=== PATIENT | male | born 1990 | race Caucasian/White ===

== ENCOUNTER 2021-01-01 20:42 | Observation (INO) ==
[2021-01-01] MEDS ORDERED: Isovue-370 500 ML BOTTLE IVP ONE (22:11)
[2021-01-01] MEDS ORDERED: Ondansetron 4 MG/2 ML VIAL IVP ONE (22:15)
[2021-01-01] MEDS ORDERED: Morphine Sulfate 2 MG/ML SYRINGE IVP STA (22:15)
[2021-01-01] MEDS ORDERED: 0.9 % Sodium Chloride 500 ML IVC STA (22:15)
[2021-01-02] MEDS ORDERED: Piperacillin/Tazobactam 3.375 GM in 0.9 % Sodium Chloride Mini Bag 100 ML IVPB ONE (00:08)
[2021-01-02] MEDS ORDERED: 0.9 % Sodium Chloride 1,000 ML IVC ONE ×2 (00:08→04:25)
[2021-01-02] MEDS ORDERED: 0.9 % Sodium Chloride 1,000 ML IVC SCH (02:15)
[2021-01-02] MEDS ORDERED: Ondansetron 4 MG/2 ML VIAL IVP PRN ×3 (02:25→16:49)
[2021-01-02] MEDS: Acetaminophen IV 1,000 MG/100 ML BAG IVPB SCH ×2 (05:06→11:55)
[2021-01-02] MEDS ORDERED: Piperacillin/Tazobactam 3.375 GM in 0.9 % Sodium Chloride Mini Bag 100 ML IVPB SCH (08:00)
[2021-01-02] MEDS ORDERED: *HR* HYDROmorphone PF 0.5 MG/0.5 ML SYRINGE IVP PRN (12:12)
[2021-01-02] MEDS ORDERED: *HR* Propofol 200 MG/20 ML VIAL IVP ONE (12:56)
[2021-01-02] MEDS ORDERED: *HR* Rocuronium Bromide 50 MG/5 ML VIAL ONE (12:56)
[2021-01-02] MEDS ORDERED: Lidocaine -MPF 2% 2 ML VIAL ONE (12:56)
[2021-01-02] MEDS ORDERED: Ondansetron 4 MG/2 ML VIAL ONE (12:56)
[2021-01-02] MEDS ORDERED: *HR* Midazolam HCl 2 MG/2 ML VIAL ONE (12:56)
[2021-01-02] MEDS ORDERED: Lidocaine HCL 4 ML Topical Solution (Laryng-O-Jet Kit Sterile Pak) TP ONE (12:56)
[2021-01-02] MEDS ORDERED: Ketorolac 30 MG/ML VIAL ONE (12:56)
[2021-01-02] MEDS ORDERED: *HR* FentaNYL (PF) 100 MCG/2 ML VIAL ONE ×2 (12:56→14:51)
[2021-01-02] MEDS ORDERED: *HR* Succinylcholine 200 MG/10 ML VIAL IVP ONE (12:56)
[2021-01-02] MEDS ORDERED: EPHEDrine 50 MG/ML VIAL ONE (14:45)
[2021-01-02] MEDS ORDERED: Sugammadex Sodium 200 MG/2 ML VIAL IV ONE (15:15)
[2021-01-02] MEDS: Ketorolac 15 MG/ML VIAL IVP SCH ×2 (17:46→23:47)
[2021-01-02] MEDS: *HR* OxyCODONE/APAP 5/325 TABLET PO PRN (19:58)
[2021-01-02] MEDS: Piperacillin/Tazobactam 3.375 GM in 0.9 % Sodium Chloride Mini Bag 100 ML IVPB SCH (23:52)
[2021-01-03] MEDS: *HR* OxyCODONE/APAP 5/325 TABLET PO PRN (03:36)
[2021-01-03 05:37] LABS: Basophils % 0.1 %; Monocytes % 3.6 %; Red Cell Distribution Width 13.2 % (11.5-14.5)
[2021-01-03 05:39] LABS: Hematocrit 41.5 % (37.5-50.1); Hemoglobin 13.6 g/dL (12.9-16.9); Immature Granulocytes % 5.4 % (0-4); Immature Platelets 37.1 % (1.1-6.1); Lymphocytes # 0.6 K/mcL (0.6-4.6); Lymphocytes % 3.5 %; Mean Corpuscular HGB Conc 32.8 g/dL (31.6-35.5); Mean Corpuscular Hemoglobin 30.5 pg (28.0-33.3); Monocytes # 0.6 K/mcL (0.0-1.3); Neutrophils # 14.7 K/mcL (1.6-8.9); Red Blood Count 4.46 M/mcL (4.19-5.50); Segmented Neutrophils % 87.4 %; White Blood Count 16.8 K/mcL (4.3-11.1)
[2021-01-03 05:42] LABS: Platelet Count 50 K/mcL (140-400)
[2021-01-03] MEDS: Ketorolac 15 MG/ML VIAL IVP SCH (06:08)
[2021-01-03 06:28] LABS: Platelet Estimate Decreased (Normal)
[2021-01-03 07:34] VITALS: BP 121/77
[2021-01-03] MEDS: Piperacillin/Tazobactam 3.375 GM in 0.9 % Sodium Chloride Mini Bag 100 ML IVPB SCH (09:04)
== END 2021-01-03 11:45 | disposition home or self-care (01) ==
LOC: 3BNU 20:42 → EMEROOARM 20:42 → 3BNU 01-02 01:05
PROVIDERS: ADMIT Surgery; ATTEND Surgery